=== PATIENT | female | born 1935 | race Caucasian/White ===

== ENCOUNTER 2020-03-30 21:11 | Inpatient (IN) ==
[2020-03-30] MEDS ORDERED: MORPHINE 4 MG/1 ML VIAL IV STA (22:14)
[2020-03-30] MEDS ORDERED: methylPREDNISolone SOD SUC 125 MG/2 ML VIAL IV STA (22:14)
[2020-03-30] MEDS ORDERED: NITROGLYCERIN 2% OINT 1 INCH/GM PACK TOP STA (22:14)
[2020-03-30] MEDS ORDERED: ASPIRIN 325 MG TABLET PO STA ×2 (22:14)
[2020-03-30] MEDS ORDERED: FUROSEMIDE 40 MG/4 ML VIAL IV STA (22:14)
[2020-03-30] MEDS ORDERED: ONDANSETRON 4 MG/2 ML VIAL IV STA (22:14)
[2020-03-30 22:24] LABS: Basophils # 0.1 10*3/uL (0.0-0.2); Basophils % 1.4 % (0.0-0.8); Eosinophils # 0.1 10*3/uL (0.0-0.87); Eosinophils % 1.4 % (0.00-10.9); Hematocrit 38.4 VOL% (35.7-47.0); Hemoglobin 12.7 GM/DL (12.0-16.0); Immature Granulocytes % 0.6 %; Immature Granulocytes Absolute 0.04 #; Lymphocytes # 0.9 10*3/uL (1.4-4.0); Lymphocytes % 12.6 % (21.3-54.2); Mean Corpuscular HGB Conc 33.1 GM/DL (32-36); Mean Corpuscular Volume 89.7 FL (87-102); Mean Platelet Volume 10.6 FL (9.6-12.0); Monocytes % 6.9 % (1.7-12.7); Neutrophils % 77.1 % (38.7-73.9); Platelet Count 254 T/CUMM (130-400); Red Blood Count 4.28 MC/CUMM (3.8-5.5); Red Cell Distribution Width 13.6 % (9.3-17.3); White Blood Count 7.1 T/CUMM (4-12)
[2020-03-30] MEDS ORDERED: dilTIAZem Drip 125 MG/125 ML PREMIX IV SCH (22:30)
[2020-03-30 22:31] LABS: INR 1.1; PT Patient Result 12.2 SECS (9.8-11.9)
[2020-03-30 22:37] LABS: Bilirubin,Total 0.4 MG/DL (0.2-1.0); Calcium 8.9 MG/DL (8.5-10.1); Osmolality,Calculated 267.2 MOS/KG (273-304); Total Protein 7.4 G/DL (6.4-8.3)
[2020-03-30] MEDS ORDERED: MAGNESIUM SULF RIDER 2 GM in PREMIX 1 EACH IV STA (23:06)
[2020-03-30] MEDS ORDERED: ONDANSETRON 4 MG/2 ML VIAL IV PRN (23:17)
[2020-03-30] MEDS ORDERED: MORPHINE 4 MG/1 ML VIAL IV PRN (23:17)
[2020-03-30] MEDS ORDERED: GLUCAGON 1 MG VIAL IM PRN (23:17)
[2020-03-30] MEDS ORDERED: DEXTROSE 50% 25 GM/50 ML VIAL IV PRN (23:17)
[2020-03-30] MEDS ORDERED: METHOCARBAMOL 500 MG TABLET PO PRN (23:20)
[2020-03-30] MEDS ORDERED: LEVALBUTEROL 1.25 MG/3 ML NEB RESP TX PRN (23:21)
[2020-03-30 23:54] LABS: Bacteria,Urine Occasional /HPF (Few); Bilirubin,Urine Negative (Negative); Blood, Urine Negative (Negative); Glucose,Urine (UA) Negative (Negative); Ketones,Urine 5 mg/dL (Negative); Nitrite,Urine Negative (Negative); Protein,Urine Negative; RBC,Urine 2 /HPF (0-4); Urine Appearance CLEAR (Clear); Urine Color Straw (Yellow); Urine Urobilinogen < 2.0 EU/DL (0.2-1.0); WBC,Urine 1 /HPF (0-6)
[2020-03-31] MEDS ORDERED: DEXTROSE 50% 25 GM/50 ML SYRINGE IV PRN (00:07)
[2020-03-31] MEDS ORDERED: guaiFENesin 200 MG/10 ML UDCUP PO PRN (00:21)
[2020-03-31] MEDS ORDERED: ZOLPIDEM 5 MG TABLET ONE (00:44)
[2020-03-31] MEDS ORDERED: POTASSIUM CHLORIDE 20 MEQ TABLET PO PRN (01:07)
[2020-03-31] MEDS: ZOLPIDEM 5 MG TABLET PO SCH ×2 (03:30→21:10)
[2020-03-31 06:38] LABS: Albumin 3.7 G/DL (3.4-5.0); Bilirubin,Total 0.6 MG/DL (0.2-1.0); Calcium 9.1 MG/DL (8.5-10.1); Osmolality,Calculated 261.8 MOS/KG (273-304)
[2020-03-31] MEDS ORDERED: POTASSIUM CHLORIDE 20 MEQ TABLET PO ONE (07:48)
[2020-03-31 08:31] LABS: Free T4 (Free Thyroxine) 1.13 NG/DL (0.76-1.46); Thyroid Stimulating Hormone 0.367 uIU/ml (0.358-3.74)
[2020-03-31] MEDS: CELECOXIB 200 MG CAPSULE PO SCH (08:57)
[2020-03-31] MEDS: MONTELUKAST 10 MG TABLET PO SCH (08:58)
[2020-03-31] MEDS ORDERED: DILTIAZEM CD 120 MG CAPSULE PO SCH (09:00)
[2020-03-31] MEDS ORDERED: PANTOPRAZOLE 40 MG TABLET PO SCH (09:00)
[2020-03-31] MEDS ORDERED: ACEBUTOLOL 200 MG CAPSULE PO SCH (09:00)
[2020-03-31] MEDS: APIXABAN 5 MG TABLET PO SCH ×2 (09:00→21:09)
[2020-03-31] MEDS: CETIRIZINE 10 MG TABLET PO SCH (09:00)
[2020-03-31 09:04] LABS: Basophils % 0.4 % (0.0-0.8); Hematocrit 35.8 VOL% (35.7-47.0); Hemoglobin 11.9 GM/DL (12.0-16.0); Immature Granulocytes % 0.6 %; Immature Granulocytes Absolute 0.03 #; Lymphocytes # 0.5 10*3/uL (1.4-4.0); Lymphocytes % 9.5 % (21.3-54.2); Mean Corpuscular HGB Conc 33.2 GM/DL (32-36); Mean Corpuscular Volume 88.4 FL (87-102); Mean Platelet Volume 10.3 FL (9.6-12.0); Monocytes % 1.2 % (1.7-12.7); Neutrophils % 88.3 % (38.7-73.9); Platelet Count 205 T/CUMM (130-400); Red Blood Count 4.05 MC/CUMM (3.8-5.5); Red Cell Distribution Width 13.5 % (9.3-17.3)
[2020-03-31 09:14] LABS: Osmolality,Calculated 258.9 MOS/KG (273-304)
[2020-03-31] MEDS: MULTIVITAMIN (CENTRUM) TABLET PO SCH (10:12)
[2020-03-31] MEDS: CHOLECALCIFEROL 400 UNIT TABLET PO SCH (10:13)
[2020-03-31] MEDS: CALCIUM (CARBONATE)/VITAMIN D 600 MG-400 UNIT TABLET PO SCH (10:13)
[2020-03-31] MEDS: LEVOTHYROXINE 112 MCG TABLET PO SCH (10:18)
[2020-03-31] MEDS: DILTIAZEM CD 240 MG CAPSULE PO SCH (10:19)
[2020-03-31] MEDS: SERTRALINE 50 MG TABLET PO SCH (10:20)
[2020-03-31] MEDS: METOPROLOL TARTRATE 50 MG TABLET PO SCH ×2 (10:20→21:10)
[2020-03-31] MEDS: PANTOPRAZOLE 40 MG TABLET PO SCH (14:52)
[2020-03-31] MEDS: FLUTICASONE FUROATE BOTH NARES SCH (14:57)
[2020-03-31] MEDS: [UNRECOGNIZED DRUG - OTHER] BOTH NARES SCH (14:57)
[2020-03-31] MEDS ORDERED: INFLUENZA VIRUS VACCINE 0.5 ML SYRINGE IM ONE (16:06)
[2020-03-31] MEDS ORDERED: ACETAMINOPHEN 325 MG TABLET PO PRN (16:46)
[2020-03-31] MEDS ORDERED: AMITRIPTYLINE 10 MG TABLET PO SCH (21:00)
[2020-04-01 06:10] LABS: Basophils % 0.3 % (0.0-0.8); Eosinophils # 0.1 10*3/uL (0.0-0.87); Eosinophils % 1.2 % (0.00-10.9); Hematocrit 31.9 VOL% (35.7-47.0); Hemoglobin 10.6 GM/DL (12.0-16.0); Immature Granulocytes % 0.6 %; Immature Granulocytes Absolute 0.06 #; Lymphocytes # 1.3 10*3/uL (1.4-4.0); Mean Corpuscular HGB Conc 33.2 GM/DL (32-36); Mean Corpuscular Volume 88.9 FL (87-102); Mean Platelet Volume 10.1 FL (9.6-12.0); Monocytes % 10.6 % (1.7-12.7); Neutrophils % 74.3 % (38.7-73.9); Platelet Count 206 T/CUMM (130-400); Red Blood Count 3.59 MC/CUMM (3.8-5.5); Red Cell Distribution Width 13.5 % (9.3-17.3); White Blood Count 9.6 T/CUMM (4-12)
[2020-04-01 06:33] LABS: Calcium 8.8 MG/DL (8.5-10.1); Osmolality,Calculated 262.8 MOS/KG (273-304)
[2020-04-01] MEDS: LEVOTHYROXINE 112 MCG TABLET PO SCH (06:45)
[2020-04-01] MEDS ORDERED: FLUTICASONE 44 MCG/PUFF INHALER 10.6 GM INH SCH (09:00)
[2020-04-01] MEDS ORDERED: OLOPATADINE 0.7% BOTH EYES SCH (09:00)
[2020-04-01] MEDS: MULTIVITAMIN (CENTRUM) TABLET PO SCH (10:11)
[2020-04-01] MEDS: SERTRALINE 50 MG TABLET PO SCH (10:11)
[2020-04-01] MEDS: APIXABAN 5 MG TABLET PO SCH (10:11)
[2020-04-01] MEDS: DILTIAZEM CD 240 MG CAPSULE PO SCH (10:11)
[2020-04-01] MEDS: CHOLECALCIFEROL 400 UNIT TABLET PO SCH (10:11)
[2020-04-01] MEDS: PANTOPRAZOLE 40 MG TABLET PO SCH (10:11)
[2020-04-01] MEDS: CETIRIZINE 10 MG TABLET PO SCH (10:11)
[2020-04-01] MEDS: MONTELUKAST 10 MG TABLET PO SCH (10:12)
[2020-04-01] MEDS: METOPROLOL TARTRATE 50 MG TABLET PO SCH (10:12)
[2020-04-01] MEDS: CELECOXIB 200 MG CAPSULE PO SCH (10:12)
[2020-04-01] MEDS: CALCIUM (CARBONATE)/VITAMIN D 600 MG-400 UNIT TABLET PO SCH (10:12)
[2020-04-01] MEDS: FLUTICASONE FUROATE BOTH NARES SCH (10:14)
[2020-04-01] MEDS: [UNRECOGNIZED DRUG - OTHER] BOTH NARES SCH (10:14)
[2020-04-01 11:15] VITALS: BP 127/70
== END 2020-04-01 12:25 | disposition home or self-care (01) | DRG 309 ==
LOC: N.ED 21:11 → N.EDINP 23:17 → N.TELES 03-31 14:39
PROVIDERS: ADMIT Family Medicine; ATTEND Family Medicine